=== PATIENT | male | born 1975 | race American Indian/Alaskan Native ===

== ENCOUNTER 2017-09-17 12:01 | Emergency (ER) | payer SELFPAY ==
[2017-09-17 13:29] VITALS: BP 148/93
--- NOTE | 2017-09-17 14:20 | Emergency Department Report ---
Blank Doc - Documentation Documentation: Patient is a 42-year-old male comes in with tooth pain as single and on for last couple days patient has not seen Basilio Horn do dental block and oral antibiotics.
== END 2017-09-17 14:29 | disposition left against medical advice (07) ==
LOC: ED 12:01
DX: K08.89 Other specified disorders of teeth and supporting structures (principal); Z53.21 Procedure and treatment not carried out due to patient leaving prior to being seen by health care provider